=== PATIENT | male | born 1995 | race Caucasian/White ===

== ENCOUNTER 2016-07-07 18:08 | Emergency (ER) | payer OTHER ==
[~2016-07-07] VITALS: Ht 170.2 cm; Wt 106.6 kg
[2016-07-07 18:53] VITALS: BP 139/66
--- NOTE | 2016-07-07 20:40 | NUR ---
TO ER BED 2
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
[2016-07-07 21:25] VITALS: BP 128/68
--- NOTE | 2016-07-07 21:25 | NUR ---
Note shawnone in EDM - 07/07/16 at 2317 by CRISTINA Patient discharged BY ER MD with v/s stable. Written and verbal after care instructions given and explained BY DR GOETZ. Patient verbalized understanding. Ambulatory with steady gait. All questions addressed prior to discharge. Advised to follow up with PMD OR RETURN TO ER IF CONDITION WORSENS. NO S/S OF DISTRESS NOTED ON D/C.
--- NOTE | 2016-07-07 21:25 | NUR ---
Patient discharged BY ER MD with v/s stable. Written and verbal after care instructions given and explained BY DR GOETZ. Patient alert, oriented and verbalized understanding of instructions. Ambulatory with steady gait. All questions addressed prior to discharge. ID band removed. Patient advised to follow up with PMD OR RETURN TO ER IF CONDITION WORSENS. Rx of NAPROSYN given. Patient educated on indication of medication including possible reaction and side effects. Opportunity to ask questions provided and answered.NO S/S OF DISTRESS NOTED ON D/C.
== END 2016-07-07 21:25 | disposition home or self-care (01) ==
LOC: MED 18:08
DX: S43.409A Unspecified sprain of unspecified shoulder joint, initial encounter (principal); V89.2XXA Person injured in unspecified motor-vehicle accident, traffic, initial encounter; Y93.89 Activity, other specified; Y92.89 Other specified places as the place of occurrence of the external cause; Y99.8 Other external cause status

== ENCOUNTER 2016-08-23 09:22 | Emergency (ER) | payer OTHER ==
[~2016-08-23] VITALS: Ht 175.3 cm; Wt 103.4 kg
[2016-08-23 09:27] VITALS: BP 117/69
--- NOTE | 2016-08-23 09:36 | NUR ---
Patient ambulated to bed 08.
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
--- NOTE | 2016-08-23 09:40 | NUR ---
XRAY AT BEDSIDE.
[2016-08-23] MEDS ORDERED: LIDOCAINE 1% 500 MG/50 ML VIAL INJ ONE (09:45)
--- NOTE | 2016-08-23 09:57 | NUR ---
Dr. Gallardo evaluating patient at bedside.
[2016-08-23 10:51] VITALS: BP 139/75
== END 2016-08-23 10:56 | disposition home or self-care (01) ==
LOC: MED 09:22
DX: S61.217A Laceration without foreign body of left little finger without damage to nail, initial encounter (principal); W22.8XXA Striking against or struck by other objects, initial encounter; Y93.89 Activity, other specified; Y92.89 Other specified places as the place of occurrence of the external cause; Y99.8 Other external cause status
CPT/HCPCS: 12001; 73130; 90471; 90715; 99284; J2001; Q0092

== ENCOUNTER 2016-08-30 16:15 | Emergency (ER) | payer OTHER ==
[~2016-08-30] VITALS: Ht 175.3 cm; Wt 102.5 kg
[2016-08-30 16:21] VITALS: BP 87/40
--- NOTE | 2016-08-30 16:24 | NUR ---
Patient ambulated to bed 5. RN evaluating patient at bedside.
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
--- NOTE | 2016-08-30 16:33 | NUR ---
DR CRUZ AT BEDSIDE.
[2016-08-30 16:43] VITALS: BP 137/82
--- NOTE | 2016-08-30 16:43 | NUR ---
Patient discharged with v/s stable. Written and verbal after care instructions given and explained. Patient verbalized understanding. Ambulatory with steady gait. All questions addressed prior to discharge. Advised to follow up with PMD.
== END 2016-08-30 16:43 | disposition home or self-care (01) ==
LOC: MED 16:15
DX: S61.210D Laceration without foreign body of right index finger without damage to nail, subsequent encounter (principal); X58.XXXD Exposure to other specified factors, subsequent encounter
CPT/HCPCS: 99283

== ENCOUNTER 2020-09-03 20:35 | Emergency (ER) | payer OTHER ==
[~2020-09-03] VITALS: Ht 172.7 cm; Wt 108.0 kg
[2020-09-03 20:40] VITALS: BP 141/80
[2020-09-03] MEDS ORDERED: FAMOTIDINE 20 MG TAB PO ONE (21:25)
[2020-09-03] MEDS ORDERED: ALUMINUM HYD/MAG/SIMETHICONE 30 ML, DICYCLOMINE HCL LIQUID 20 MG, LIDOCAINE VISCOUS 2% ... PO ONE ×3 (21:25)
[2020-09-03] MEDS ORDERED: ALUMINUM HYD/MAG/SIMETHICONE 30 ML UDC ONE (21:43)
[2020-09-03] MEDS ORDERED: DICYCLOMINE HCL LIQUID 10 MG/5 ML UDC ONE (21:43)
[2020-09-03] MEDS ORDERED: LIDOCAINE VISCOUS 2% 20 ML UDC ONE (21:43)
[2020-09-03 21:44] LABS: HEMATOCRIT 41.9 % (36-52); HEMOGLOBIN 14.8 g/dL (12.0-18.0); MEAN CORPUSCULAR HEMOGLOBIN 33 pg (27-31); MEAN CORPUSCULAR HGB CONC 35 g/dL (33-37); MEAN CORPUSCULAR VOLUME 92.3 fL (80-94); PLATELET COUNT (AUTO) 226 K/uL (140-450); RED BLOOD CELL COUNT(AUTO) 4.54 MIL/uL (4.20-6.10); RED CELL DISTRIBUTION WIDTH 12.7 % (11.6-13.7); WHITE BLOOD COUNT (AUTO) 8.1 K/uL (4.8-10.8)
[2020-09-03 21:54] LABS: ALBUMIN 3.9 g/dL (3.4-5.0); ANION GAP 11.8 (8-16); CARBON DIOXIDE 29.1 mmol/L (21-32); POTASSIUM 3.9 mmol/L (3.5-5.1); TOTAL BILIRUBIN 0.5 mg/dL (0.0-1.0)
[2020-09-03] MEDS: SUCRALFATE 1 GM TAB PO SCH ×2 (21:56→22:09)
[2020-09-03 22:08] LABS: EOSINOPHILS % (MANUAL) 8 % (0-4); LYMPHOCYTES % (MANUAL) 30 % (20-46); MONOCYTES % (MANUAL) 11 % (5-12)
[2020-09-03] MEDS ORDERED: SUCR1TAB35 PO (22:29)
[2020-09-03] MEDS ORDERED: MAG355OR2 PO (22:29)
[2020-09-03] MEDS ORDERED: FAMO-90 PO (22:29)
[2020-09-03 22:38] VITALS: BP 141/80
== END 2020-09-03 22:38 | disposition home or self-care (01) ==
LOC: MED 20:35
DX: K29.70 Gastritis, unspecified, without bleeding (principal)
CPT/HCPCS: 36415; 80053; 81002; 83690; 85025; 99284

== ENCOUNTER 2020-12-01 20:10 | Observation (INO) | payer OTHER, SELFPAY ==
[~2020-12-01] VITALS: Ht 175.3 cm; Wt 104.3 kg
[~2020-12-01 20:10] MED LIST: FAMO-90 PO; MAG355OR2 PO; SUCR1TAB35 PO
[2020-12-01 20:30] VITALS: BP 128/64
--- NOTE | 2020-12-01 20:33 | NUR ---
TO LOBBY A/W BED AMBULATORY
--- NOTE | 2020-12-01 21:20 | NUR ---
SEEN AND EXAMINED BY LULI
[2020-12-01 22:10] LABS: BASOPHILS % (AUTO) 0.2 % (0.0-2.0); EOSINOPHILS # (AUTO) 0.1 K/uL (0-0.4); EOSINOPHILS % (AUTO) 2.1 % (0.0-4.0); HEMATOCRIT 44.2 % (36-52); HEMOGLOBIN 15.6 g/dL (12.0-18.0); LYMPHOCYTES # (AUTO) 1.5 K/uL (2.0-11.5); LYMPHOCYTES % (AUTO) 21.5 % (20.5-51.1); MEAN CORPUSCULAR HEMOGLOBIN 32 pg (27-31); MEAN CORPUSCULAR HGB CONC 35 g/dL (33-37); MONOCYTES # (AUTO) 0.5 K/uL (0.8-1.0); MONOCYTES % (AUTO) 6.6 % (1.7-9.3); NEUTROPHILS # (AUTO) 4.9 K/uL (1.8-7.7); NEUTROPHILS % (AUTO) 69.6 % (42.2-75.2); PLATELET COUNT (AUTO) 234 K/uL (140-450); RED BLOOD CELL COUNT(AUTO) 4.86 MIL/uL (4.20-6.10); RED CELL DISTRIBUTION WIDTH 12.4 % (11.6-13.7)
[2020-12-01 22:37] LABS: ALBUMIN 4.7 g/dL (3.4-5.0); ANION GAP 14.6 (8-16); ASPARTATE AMINOTRANSFERASE 45 U/L (15-37); CARBON DIOXIDE 28.7 mmol/L (21-32); CHLORIDE 104 mmol/L (98-107); GFR ARICAN-AMERICAN 115 mL/min (>90); GLUCOSE 88 mg/dL (74-106); POTASSIUM 3.3 mmol/L (3.5-5.1); SODIUM SERUM 144 mmol/L (136-145); THYROID STIMULATING HORMONE 0.95 uIU/mL (0.34-3.74); TOTAL BILIRUBIN 1.3 mg/dL (0.0-1.0); UREA NITROGEN, BLOOD 10 mg/dL (7-18)
[2020-12-01 22:41] LABS: ACETAMINOPHEN < 0.5 ug/ml (10-30); SALICYLATE < 2.8 mg/dL (2.8-20.0)
--- NOTE | 2020-12-01 23:05 | NUR ---
TO ER BED 5
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
--- NOTE | 2020-12-02 00:26 | NUR ---
patient ambulated to the bathroom for urine collection
[2020-12-02 00:54] LABS: APPEARANCE,URINE CLEAR (CLEAR); COLOR,URINE YELLOW (YELLOW)
[2020-12-02 00:55] LABS: BILIRUBIN,URINE NEGATIVE (NEGATIVE); BLOOD, URINE NEGATIVE (NEGATIVE); LEUKOCYTE ESTERASE ,URINE NEGATIVE (NEGATIVE); NITRITE, URINE NEGATIVE (NEGATIVE); UGLUCOSE NEGATIVE (NEGATIVE)
[2020-12-02 01:07] LABS: BARBITURATE, URINE NEGATIVE ng/ml (NEG <=200); BENZODIAZEPINE, URINE NEGATIVE ng/mL (NEG <=200); CANNABINOID, URINE POSITIVE ng/mL (NEG <=50); COCAINE, URINE NEGATIVE ng/mL (NEG <=300); OPIATE, URINE NEGATIVE ng/mL (NEG <=2000); PHENCYCLIDINE SCREEN,URINE NEGATIVE ng/mL (NEG <=25)
[2020-12-02 01:08] LABS: RBC,URINE 0-5 /HPF (0-5); WBC,URINE 0-5 /HPF (0-5)
--- NOTE | 2020-12-02 01:20 | NUR ---
PER TELEPSYCH REQUEST SENT
--- NOTE | 2020-12-02 01:46 | NUR ---
per sister, asking about updates and results. LULI made aware.
--- NOTE | 2020-12-02 02:27 | NUR ---
patient consented to sister about UDS to give results.
--- NOTE | 2020-12-02 02:30 | NUR ---
sister left at bedside, patient moderately agitated and reports that nothing is wrong
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
--- NOTE | 2020-12-02 02:57 | NUR ---
ERMD at bedside speaking and evaluating patient
--- NOTE | 2020-12-02 05:28 | NUR ---
PATIENT GIVEN SANDWHICH, JELLO, AND JUICE. PATIENT STATES, " I WANT TO LEAVE ALREADY." PATIENT ABLE TO BE REDIRECTED AND ABLE TO STAY IN ROOM.
--- NOTE | 2020-12-02 05:34 | NUR ---
SPOKE WITH DR. DE PAZ AND GAVE CLINICAL INFORMATION TO THE PATIENT'S CASE.
--- NOTE | 2020-12-02 05:36 | NUR ---
PATIENT SPEAKING WITH DR. DE PAZ FOR TELEPSYCH EVALUATION.
--- NOTE | 2020-12-02 06:43 | NUR ---
Called [place] [employer] to place patient on a 5150 hold for acute psychosis and delusions. reports that they will be sending someone out soon.
--- NOTE | 2020-12-02 07:09 | NUR ---
PD at bedside for 5150 hold on patient
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
--- NOTE | 2020-12-02 08:39 | NUR ---
Patient appears to be resting comfortably in bed. Vital Signs within normal limits. Respirations even and unlabored.
--- NOTE | 2020-12-02 14:52 | NUR ---
PT AMBULTED TO RESTROOM, STATES HE IS HAVING NAUSEA AND VOMITING FROM HOSPITAL FOOD.
[2020-12-02] MEDS ORDERED: POTASSIUM CHLORIDE 10 MEQ TABER PO ONE (15:20)
--- NOTE | 2020-12-02 16:08 | NUR ---
PT ONLY TOOK 2 PO OF POTASSIUM, STATES "IM NOT A PILL PERSON, I DONT WANT TO TAKE IT RIGHT NOW". ERMD MADE AWARE.
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
--- NOTE | 2020-12-02 19:18 | NUR ---
Pt report given to PETRONA SMALLS. Transfer of care at this time.
--- NOTE | 2020-12-02 19:43 | NUR ---
PT. AMBULATED TO BATHROOM WITH EVEN AND STEADY GAIT.
--- NOTE | 2020-12-02 21:47 | NUR ---
Late entry - Intake was received earlier. Information has been faxed to the following facilties for review for pleacement. [facility]/ [place]/ [facility]/ [facility] Will keep facility updated with any information regarding placement
--- NOTE | 2020-12-02 21:57 | NUR ---
PT. AWAKE AND ALERT IN SIDE LYING POSITION, INTERACTING APPOPRIATELY WITH STAFF. WILL CONTINUE TO MONITOR
--- NOTE | 2020-12-03 02:45 | NUR ---
PT. RESTING WITH EYES CLOSED IN SUPINE POSITION. NO DISTRESS NOTED. HR EVEN AND REGUALR, WILL CONTINUE TO MONITOR.
--- NOTE | 2020-12-03 03:51 | NUR ---
PT. LAYING IN SUPINE POSITION WITH EYES CLOSED. VOICES NO COMPLAINTS AT THIS TIME. BREATHING UNLABORED, WITH HR EVEN AND REGULAR.
--- NOTE | 2020-12-03 06:03 | NUR ---
PT. LAYING ON HIS LEFT SIDE RESTING WITH EYES CLOSED, HR EVEN AND REGULAR. BREATHING UNLABORED. WILL CONTINUE TO MONITOR.
--- NOTE | 2020-12-03 07:22 | NUR ---
REPORT GIVEN TO SLIM HERNANDEZ. TRANSFER OF CARE AT THIS TIME
--- NOTE | 2020-12-03 07:24 | NUR ---
RECEVIED REPORT FROM SLIM RUSS. [facility] AT THIS TIME.
--- NOTE | 2020-12-03 07:40 | NUR ---
PT SLEEPING, VISIBLE EQUAL RISE AND FALL OF CHEST. WILL CONTINUE TO MONITOR.
--- NOTE | 2020-12-03 08:22 | NUR ---
PT AMBULATED TO RESTROOM WITH A STEADY GAIT.
--- NOTE | 2020-12-03 08:26 | NUR ---
PT AMBULATED TO ER BED 5 WITH A STEADY GAIT. SI PRECAUTIONS IN PLACE.
--- NOTE | 2020-12-03 08:44 | NUR ---
PT SITTING UP IN BED, EATING BREAKFAST, VSS, WILL CONTINUE TO MONITOR.
[2020-12-03] MEDS ORDERED: ACETAMINOPHEN 325 MG TAB PO PRN (09:20)
[2020-12-03] MEDS ORDERED: ONDANSETRON 4 MG/2 ML VIAL IVP PRN (09:20)
--- NOTE | 2020-12-03 11:14 | NUR ---
PT SLEEPING SUPINE, VISIBLE EQUAL RISE AND FALL OF CHEST, VSS, WILL CONTINUE TO MONITOR.
--- NOTE | 2020-12-03 11:28 | NUR ---
SPOKE WITH PT FOR PT UPDATES.
--- NOTE | 2020-12-03 12:30 | NUR ---
PT SLEEPING SUPINE, HOB ELEVATED SEMI-MICHELE'S, WILL CONTINUE TO MONITOR.
--- NOTE | 2020-12-03 14:00 | NUR ---
PT AMBULATED TO RESTROOM WITH A STEADY GAIT.
--- NOTE | 2020-12-03 14:09 | NUR ---
PT AMBULATED TO ER BED 5 WITH STEADY GAIT.
--- NOTE | 2020-12-03 15:00 | NUR ---
PT IS WITH PT AT BEDSIDE.
--- NOTE | 2020-12-03 17:08 | NUR ---
PT SLEEPING VISIBLE EQUAL RISE AND FALL OF CHEST, VSS, WILL CONTINUE TO MONITOR.
--- NOTE | 2020-12-03 18:34 | NUR ---
PT SLEEPING ON RIGHT SIDE, EASILY AROUSABLE CALM AND COOPERATIVE, VSS, WILL CONTINUE TO MONITOR.
--- NOTE | 2020-12-03 19:15 | NUR ---
GAVE REPORT TO CHARGE SLIM SALEEM. TRANSFER OF CARE AT THIS TIME.
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
--- NOTE | 2020-12-03 21:48 | NUR ---
REPORT RECIEVED FROM SLIM SALEEM FOR CONTINUITY OF CARE. PT APPEARS PLEASANT AT THIS TIME. DENIES SI. COOPERATIVE. RESTING IN BED COMFORTABLY. WILL CONTINUE TO MONITOR.
--- NOTE | 2020-12-03 22:43 | NUR ---
Patient appears to be resting comfortably in bed, EYES CLOSED AT THIS TIME. Respirations even and unlabored. SI PRECAUTIONS IN PLACE. WILL CONTINUE TO MONITOR.
--- NOTE | 2020-12-03 23:45 | NUR ---
Patient appears to be resting comfortably in bed. Respirations even and unlabored. PT REMAINS IN ROOM, COOPERATIVE. ALL NEEDS MET AT THIS TIME.
--- NOTE | 2020-12-04 00:57 | NUR ---
Patient appears to be resting comfortably in bed, EYES CLOSED. Respirations even and unlabored. PT REMAINS IN ROOM, COOPERATIVE. ALL NEEDS MET AT THIS TIME. WILL CONTINUE TO MONITOR.
--- NOTE | 2020-12-04 02:01 | NUR ---
Patient appears to be resting comfortably in bed, EYES CLOSED. Respirations even and unlabored. PT REMAINS IN ROOM, COOPERATIVE. WILL CONTINUE TO MONITOR.
--- NOTE | 2020-12-04 02:59 | NUR ---
PT AMBULATED TO RESTROOM WITH STEADY AND EVEN GAIT.
--- NOTE | 2020-12-04 03:01 | NUR ---
PT RETURNED TO BED 05.
--- NOTE | 2020-12-04 04:36 | NUR ---
PT AWAKE AND RESTING IN BED. DENIES ANY NEEDS AT THIS TIME. PT IS CALM AND COOPERATIVE. WILL CONTINUE TO MONITOR.
--- NOTE | 2020-12-04 05:10 | NUR ---
PT SITTING UP IN BED, EATING. DRINK PROVIDED PER REQUEST. PT IS CALM AND COOPERATIVE AT THIS TIME.
--- NOTE | 2020-12-04 06:37 | NUR ---
PT RESTING COMFORTABLY IN BED WITH EYES CLOSED. RESPIRATIONS EVEN AND UNLABORED. WILL CONTINUE TO MONITOR.
--- NOTE | 2020-12-04 07:19 | NUR ---
Report and continuation of care received from SLIM Allen.
--- NOTE | 2020-12-04 07:19 | NUR ---
REPORT GIVEN TO AMINAH RN FOR CHANGE OF SHIFT AND CONTINUITY OF CARE.
[2020-12-04 07:25] LABS: BASOPHILS % (AUTO) 0.3 % (0.0-2.0); EOSINOPHILS # (AUTO) 0.5 K/uL (0-0.4); EOSINOPHILS % (AUTO) 8.9 % (0.0-4.0); HEMATOCRIT 44.2 % (36-52); HEMOGLOBIN 15.5 g/dL (12.0-18.0); LYMPHOCYTES # (AUTO) 1.8 K/uL (2.0-11.5); LYMPHOCYTES % (AUTO) 31.2 % (20.5-51.1); MEAN CORPUSCULAR HEMOGLOBIN 32 pg (27-31); MEAN CORPUSCULAR HGB CONC 35 g/dL (33-37); MEAN CORPUSCULAR VOLUME 91.2 fL (80-94); MONOCYTES # (AUTO) 0.5 K/uL (0.8-1.0); NEUTROPHILS % (AUTO) 51.6 % (42.2-75.2); PLATELET COUNT (AUTO) 211 K/uL (140-450); RED BLOOD CELL COUNT(AUTO) 4.85 MIL/uL (4.20-6.10); RED CELL DISTRIBUTION WIDTH 12.7 % (11.6-13.7); WHITE BLOOD COUNT (AUTO) 5.9 K/uL (4.8-10.8)
--- NOTE | 2020-12-04 07:30 | NUR ---
Patient presents asleep laying on left side in semi-fowlers. RR even/unlabored. Bed locked in lowest position, side rails x 1.
--- NOTE | 2020-12-04 07:39 | NUR ---
Patient ambulated to restroom with steady/even gait.
[2020-12-04 08:15] LABS: ANION GAP 11.3 (8-16); CARBON DIOXIDE 27.2 mmol/L (21-32); CREATININE 0.8 mg/dL (0.6-1.3); POTASSIUM 3.5 mmol/L (3.5-5.1)
--- NOTE | 2020-12-04 08:43 | NUR ---
Patient resting in semi-fowlers position with both eyes open. VSS; respirations even/unlabored. Bed locked in lowest position, side rails x 1.
--- NOTE | 2020-12-04 09:50 | NUR ---
Patient alseep in low-fowlers position. Requesting to go home; advised of plan of care for patient and will provide any new updates.
--- NOTE | 2020-12-04 10:59 | NUR ---
Patient resting in low fowlers position with both eyes closed. VSS; respirations even/unlabored. Bed locked in lowest position, side rails x 1.
--- NOTE | 2020-12-04 11:39 | NUR ---
SUBITTED REQUEST FOR TELEPSYCH EVALUATION, PER DR. CALVERT
--- NOTE | 2020-12-04 12:55 | NUR ---
Dr. Mcqueen called and received report regarding patient's presentation. Telepsych at bedside.
--- NOTE | 2020-12-04 13:01 | NUR ---
Telepsych connected with Dr. Mcqueen for reevaluation.
--- NOTE | 2020-12-04 14:10 | NUR ---
ETA for mother: 15min.
--- NOTE | 2020-12-04 14:10 | NUR ---
Patient resting in low fowlers position with both eyes open. VSS; respirations even/unlabored. Bed locked in lowest position, side rails x 1.
[2020-12-04 14:32] VITALS: BP_SYST 126
[2020-12-04 14:45] VITALS: BP_DIAS 68
== END 2020-12-04 14:45 | disposition home or self-care (01) ==
LOC: MED 20:10 → MMU 12-03 09:20
PROVIDERS: ADMIT Internal Medicine; ATTEND Internal Medicine
DX: F23 Brief psychotic disorder (principal); Z20.822 Contact with and (suspected) exposure to COVID-19; F15.19 Other stimulant abuse with unspecified stimulant-induced disorder; F14.10 Cocaine abuse, uncomplicated; F22 Delusional disorders; G47.30 Sleep apnea, unspecified; Z79.899 Other long term (current) drug therapy
CPT/HCPCS: 36415; 70450; 80048; 80053; 80305; 81001; 84443; 85025; 87426; 93005; 99285; G0378; G0480; G0482; U0003

== ENCOUNTER 2023-10-06 21:13 | Emergency (ER) | payer OTHER ==
[~2023-10-06] VITALS: Ht 175.3 cm; Wt 106.6 kg
[~2023-10-06 21:13] MED LIST changes: +SUCR-3 PO; -SUCR1TAB35 PO
[2023-10-06 21:19] VITALS: BP 114/79; PULSE 85; RESP 16; TEMP 98.8; O2SAT 98
[2023-10-06 21:36] LABS: APPEARANCE,URINE CLEAR (CLEAR); BILIRUBIN,URINE 1+ (NEGATIVE); BLOOD, URINE NEGATIVE (NEGATIVE); COLOR,URINE YELLOW (YELLOW); LEUKOCYTE ESTERASE ,URINE NEGATIVE (NEGATIVE); NITRITE, URINE NEGATIVE (NEGATIVE); PROTEIN,URINE TRACE (NEGATIVE); UGLUCOSE NEGATIVE (NEGATIVE)
[2023-10-06 21:44] LABS: ICTOTEST NEGATIVE (NEGATIVE)
[2023-10-06 22:04] LABS: FLU A ANTIGEN negative (NEGATIVE); FLU B ANTIGEN NEGATIVE (NEGATIVE)
[2023-10-07] MEDS: ONDANSETRON 4 MG ODT PO ONE (01:38)
[2023-10-07] MEDS ORDERED: IBUP-2213 PO (01:58)
[2023-10-07] MEDS ORDERED: ONDA8TAB87 PO (01:58)
[2023-10-07] MEDS ORDERED: NIRM1TAB9 PO (01:58)
[2023-10-07] MEDS ORDERED: PRED20TA5 PO (01:58)
[2023-10-07 02:01] VITALS: BP 122/79; PULSE 85; RESP 16; TEMP 98.6
[2023-10-07 02:03] VITALS: O2SAT 98
== END 2023-10-07 02:05 | disposition home or self-care (01) ==
LOC: MED 21:13
DX: U07.1 COVID-19 (principal); M54.50 Low back pain, unspecified; R11.2 Nausea with vomiting, unspecified; Z79.899 Other long term (current) drug therapy
CPT/HCPCS: 81003; 87426; 87804; 99283; Q0162